=== PATIENT | female | born 1950 | race Caucasian/White ===

== ENCOUNTER 2020-03-24 13:57 | Emergency (ER) | payer OTHER ==
[~2020-03-24] VITALS: Ht 175.3 cm; Wt 84.8 kg
[2020-03-24 14:42] VITALS: Ht 175.3 cm; Wt 84.8 kg
[2020-03-24 16:45] VITALS: BP 110/71
== END 2020-03-24 16:45 | disposition home or self-care (01) ==
LOC: ED 13:57
DX: S62.102A Fracture of unspecified carpal bone, left wrist, initial encounter for closed fracture (principal); S50.02XA Contusion of left elbow, initial encounter; Y04.8XXA Assault by other bodily force, initial encounter; Y93.89 Activity, other specified; Y92.89 Other specified places as the place of occurrence of the external cause; Y99.8 Other external cause status
CPT/HCPCS: 90715; A4570; Q0092

== ENCOUNTER → 2020-04-04 | Day surgery (SDC) | payer OTHER, SELFPAY ==
[2020-04-02 10:57] LABS: UA SPECIFIC GRAVITY >=1.030 (1.005-1.035); microscopic required? YES; urine erythrocyte TRACE (NEGATIVE)
[2020-04-02 11:50] LABS: BASOPHIL % 0.5 % (0-2); PLATELET COUNT 213 x10^3mcL (130-400)
[2020-04-02 11:51] LABS: RED CELL DISTRIBUTION WIDTH 14.8 % (11.5-14.5)
[2020-04-02 12:03] LABS: CALCIUM 9.2 mg/dL (8.5-10.1); CARBON DIOXIDE 33.1 mmol/L (21-32); CHLORIDE SERUM 105 mmol/L (98-107); CREATININE SERUM 0.7 mg/dL (0.6-1.0); GFR1 > 60 mL/min; GLUCOSE SERUM 93 mg/dL (74-106); SODIUM SERUM 142 mmol/L (136-145)
[~2020-04-04] VITALS: Ht 175.3 cm; Wt 81.6 kg
[2020-04-04 07:20] VITALS: BP 127/71
[2020-04-04 13:52] VITALS: BP 111/72
== END | disposition home or self-care (01) ==
LOC: DS 06:41 → OR 06:41
PROVIDERS: ATTEND Orthopaedic Surgery
DX: S52.552A Other extraarticular fracture of lower end of left radius, initial encounter for closed fracture (principal); X58.XXXA Exposure to other specified factors, initial encounter; Y93.89 Activity, other specified; Y92.89 Other specified places as the place of occurrence of the external cause; Y99.8 Other external cause status
CPT/HCPCS: J0131; J0690; J1170; J1885; J2175; J2250; J2405; J2704; J3010; J3490; J7120

== ENCOUNTER → 2020-05-03 | Outpatient (CLI) | payer OTHER | END | disposition home or self-care (01) | LOC: RD 11:53 | PROVIDERS: ATTEND Orthopaedic Surgery | DX: S52.539A Colles' fracture of unspecified radius, initial encounter for closed fracture (principal); X58.XXXA Exposure to other specified factors, initial encounter; Y92.9 Unspecified place or not applicable ==

== ENCOUNTER → 2020-08-02 | Outpatient (CLI) | payer OTHER, MEDICAID | END | disposition home or self-care (01) | LOC: RD 09:57 | PROVIDERS: ATTEND Orthopaedic Surgery | DX: M54.2 Cervicalgia (principal); M25.512 Pain in left shoulder ==